=== PATIENT | male | born 1965 | race Caucasian/White ===

== ENCOUNTER 2017-01-16 08:39 | Emergency (ER) | payer OTHER ==
[~2017-01-16] VITALS: Ht 170.2 cm; Wt 86.2 kg
[2017-01-16 08:43] VITALS: BP_SYST 151
--- NOTE | 2017-01-16 08:49 | NUR ---
Patient to ER bed 7 to gown for evaluation. Side rails up. Report given to Carley LANGFORD.
--- NOTE | 2017-01-16 09:23 | NUR ---
Pt complains of dizziness and vertigo since last night at 1700, pt states "feels like sea sickness". Pt states 1 episode of vomiting this morning after waking up. Pt ambulated into the ER. No other injuries/complaints per pt or noted.
--- NOTE | 2017-01-16 09:30 | NUR ---
ER at bedside examining patient.
[2017-01-16] MEDS ORDERED: NACL 0.9% 1,000 ML IV ONE (09:45)
[2017-01-16] MEDS ORDERED: ONDANSETRON HCL 4 MG/2 ML VIAL IVP ONE (09:45)
[2017-01-16] MEDS ORDERED: MECLIZINE HCL 25 MG TABLET (ANITVERT) PO ONE (09:45)
--- NOTE | 2017-01-16 09:50 | NUR ---
Pt went to CT in stable condition
[2017-01-16 09:56] LABS: BASOPHILS % (AUTO) 0.7 % (0.0-2.0); EOSINOPHILS # (AUTO) 0.3 K/uL (0.0-0.4); EOSINOPHILS % (AUTO) 5.8 % (0.0-4.0); HEMATOCRIT 46.2 % (36-54); HEMOGLOBIN 15.7 g/dL (14.0-18.0); LYMPHOCYTES % (AUTO) 19.8 % (20.5-51.5); MEAN CORPUSCULAR HEMOGLOBIN 31 pg (27-31); MEAN CORPUSCULAR HGB CONC 34 % (32-36); MEAN CORPUSCULAR VOLUME 90 fL (79.0-98.0); MONOCYTES # (AUTO) 0.3 K/uL (0.0-1.0); MONOCYTES % (AUTO) 5.4 % (1.7-9.3); NEUTROPHILS # (AUTO) 3.5 K/uL (1.8-7.7); NEUTROPHILS % (AUTO) 68.3 % (40.0-70.0); PLATELET COUNT (AUTO) 272 K/uL (130-430); RED BLOOD CELL COUNT(AUTO) 5.11 MIL/uL (4.2-6.2); RED CELL DISTRIBUTION WIDTH 11.3 % (9.0-15.0); WHITE BLOOD COUNT (AUTO) 5.1 K/uL (4.8-10.8)
[2017-01-16 10:06] LABS: ALANINE AMINOTRANSFERASE 43 U/L (12-78); ALBUMIN 3.6 g/dL (3.4-4.8); ANION GAP 10 (5-15); ASPARTATE AMINOTRANSFERASE 19 U/L (10-37); CHLORIDE 103 mmol/L (98-107); GLUCOSE 130 mg/dL (70-99); POTASSIUM 4.1 mmol/L (3.5-5.1); SODIUM SERUM 141 mmol/L (136-145); TOTAL BILIRUBIN 0.8 mg/dL (0.0-1.0); TOTAL PROTEIN, SERUM 7.4 g/dL (6.4-8.3); UREA NITROGEN, BLOOD 14 mg/dL (8-21)
[2017-01-16 10:09] LABS: GFR AFRICAN AMERICAN 130 mL/min (>90)
--- NOTE | 2017-01-16 10:09 | NUR ---
Pt returned from CT in stable condition
[2017-01-16 10:29] LABS: PROTHROMBIN TIME 11.3 SECS (9.5-12.5)
[2017-01-16 10:47] LABS: ALCOHOL, BLOOD < 3 mg/dL (<10)
[2017-01-16 11:38] LABS: BILIRUBIN,URINE NEGATIVE (NEGATIVE); BLOOD, URINE NEGATIVE (NEGATIVE); CLARITY/URINE CLEAR (CLEAR); COLOR,URINE YELLOW (YELLOW); GLUCOSE,URINE NEGATIVE (NEGATIVE); KETONES,URINE NEGATIVE (NEGATIVE); LEUKOCYTE ESTERASE ,URINE NEGATIVE (NEGATIVE); NITRITE, URINE NEGATIVE (NEGATIVE); PROTEIN URINE NEGATIVE (NEGATIVE)
[2017-01-16 11:52] LABS: BARBITURATE, URINE NEGATIVE (NEG <=200); BENZODIAZEPINE, URINE NEGATIVE (NEG <=150); CANNABINOID, URINE NEGATIVE (NEG <=50); COCAINE, URINE NEGATIVE (NEG <=150); METHAMPHETAMINES SCREEN,URINE NEGATIVE (NEG <=500); OPIATE, URINE NEGATIVE (NEG <=100); PHENCYCLIDINE SCREEN,URINE NEGATIVE (NEG <=25); UR TRICYCLIC ANTIDEPRESSANTS NEGATIVE (NEG <=300); URINE AMPHETAMINE NEGATIVE (NEG <=500); URINE METHADONE NEGATIVE (NEG <=200); URINE OXYCODONE SCREEN NEGATIVE (NEG <=100); URINE PROPOXYPHENE SCREEN NEGATIVE (NEG <=300)
[2017-01-16 12:20] VITALS: BP_SYST 148
--- NOTE | 2017-01-16 12:20 | NUR ---
Patient given written and verbal discharge instructions and verbalizes understanding. ER MD discussed with patient the results and treatment provided. Patient in stable condition. ID arm band removed. IV catheter removed intact and dressing applied, no active bleeding. Rx of Antivert given. Patient educated on pain management and to follow up with PMD. Pain Scale 1/10. Opportunity for questions provided and answered.
== END 2017-01-16 12:20 | disposition home or self-care (01) ==
LOC: SED 08:39
DX: J32.9 Chronic sinusitis, unspecified (principal); E66.9 Obesity, unspecified; Z68.29 Body mass index [BMI] 29.0-29.9, adult
CPT/HCPCS: 36415; 70450; 71010; 80053; 80307; 81003; 84484; 85025; 85610; 85730; 93005; 96361; 96374; 99285; G0482; J2405; J7030; J8597